=== PATIENT | female | born 1980 | race Caucasian/White ===

== ENCOUNTER 2022-01-26 15:05 | Emergency (ER) | payer MEDICAID ==
[~2022-01-26] VITALS: Ht 152.4 cm; Wt 85.8 kg
[2022-01-26 16:48] VITALS: BP 148/76
--- NOTE | 2022-01-26 16:52 | NUR ---
FLU, COVID SWABS DONE.
[2022-01-26] MEDS ORDERED: diphenhydrAMINE 50 MG/ML VIAL IM ONE (17:00)
[2022-01-26] MEDS ORDERED: DEXAMETHASONE 10 MG/ML VIAL IM ONE (17:00)
[2022-01-26] MEDS ORDERED: PRED20TA5 PO (17:48)
[2022-01-26] MEDS ORDERED: DIPH25TA53 PO (17:48)
--- NOTE | 2022-01-26 17:54 | NUR ---
Patient discharged with v/s stable. Written and verbal after care instructions ABOUT HIVES AND COUGH given and explained. Patient alert, oriented and verbalized understanding of instructions. Ambulatory with steady gait. All questions addressed prior to discharge. ID band removed. Patient advised to follow up with PMD. Rx of BENADRYL AND PREDNISONE given. Patient educated on indication of medication including possible reaction and side effects. Opportunity to ask questions provided and answered. D/C BY NELLY ROCKWELL
== END 2022-01-26 17:54 | disposition home or self-care (01) ==
LOC: MED 15:05
DX: U07.1 COVID-19 (principal)
CPT/HCPCS: 87426; 87804; 96372; 99284; J1100; J1200